=== PATIENT | male | born 1985 | race Two or more races ===

== ENCOUNTER 2022-10-25 20:30 | Emergency (ER) | payer SELFPAY ==
[~2022-10-25] VITALS: Ht 167.6 cm; Wt 94.0 kg
[2022-10-25 21:00] VITALS: BP 132/85
[2022-10-26] MEDS ORDERED: CYCL-837 PO (02:02)
[2022-10-26] MEDS ORDERED: IBUP-1456 PO (02:02)
== END 2022-10-26 02:22 | disposition home or self-care (01) ==
LOC: ER 20:40
DX: S16.1XXA Strain of muscle, fascia and tendon at neck level, initial encounter (principal); S29.012A Strain of muscle and tendon of back wall of thorax, initial encounter; V63.5XXA Driver of heavy transport vehicle injured in collision with car, pick-up truck or van in traffic accident, initial encounter; Y93.89 Activity, other specified; Y92.488 Other paved roadways as the place of occurrence of the external cause; Y99.8 Other external cause status
CPT/HCPCS: 70450; 72070; 72125